=== PATIENT | male | born 1970 | race African-American/Black ===

== ENCOUNTER 2019-05-24 04:51 | Observation (INO) ==
[2019-05-24] MEDS ORDERED: SODIUM CHLORIDE 0.9% 500 ML IV STA (05:07)
[2019-05-24] MEDS ORDERED: hydrALAZINE 20 MG/1 ML VIAL IV STA (05:07)
[2019-05-24] MEDS ORDERED: METOCLOPRAMIDE 10 MG/2 ML VIAL IV STA (05:07)
[2019-05-24] MEDS ORDERED: ONDANSETRON 4 MG/2 ML VIAL IV STA (05:07)
[2019-05-24 05:46] LABS: Basophils % 0.1 % (0.0-0.8); Eosinophils % 0.1 % (0.00-10.9); Hematocrit 31.6 VOL% (42.0-52.0); Hemoglobin 10.5 GM/DL (14.0-18.0); Immature Granulocytes % 0.6 %; Immature Granulocytes Absolute 0.08 #; Lymphocytes # 0.9 10*3/uL (1.4-4.0); Lymphocytes % 6.5 % (21.2-54.2); Mean Corpuscular HGB Conc 33.2 GM/DL (32-36); Mean Corpuscular Volume 88.5 FL (87-102); Mean Platelet Volume 9.1 FL (9.6-12.0); Monocytes % 2.8 % (1.7-12.7); Neutrophils % 89.9 % (38.7-73.9); Platelet Count 386 T/CUMM (130-400); Red Blood Count 3.57 MC/CUMM (3.8-5.5); Red Cell Distribution Width 12.1 % (9.3-17.3); White Blood Count 13.2 T/CUMM (4-12)
[2019-05-24 06:07] LABS: Albumin 3.3 G/DL (3.4-5.0); Bilirubin,Total 0.8 MG/DL (0.2-1.0); Calcium 8.8 MG/DL (8.5-10.1); Osmolality,Calculated 266.8 MOS/KG (273-304); Total Protein 8.8 G/DL (6.4-8.3)
[2019-05-24 09:53] LABS: Apearance,Urine CLEAR (Clear); Bilirubin,Urine Negative (Negative); Blood, Urine Small mg/dL (Negative); Glucose,Urine (UA) 150 mg/dL (Negative); Ketones,Urine Negative (Negative); Nitrite,Urine Negative (Negative); Protein,Urine 100 MG/DL; RBC,Urine 3 /HPF (0-4); Squamous Epithelial Cell,Urine Occasional /HPF (0-10); Urine Color Yellow (Yellow); Urine Specific Gravity 1.009 (1.001-1.035); Urine Urobilinogen < 2.0 EU/DL (0.2-1.0); WBC,Urine 1 /HPF (0-6)
[2019-05-24] MEDS ORDERED: ONDANSETRON 4 MG/2 ML VIAL IV PRN (10:23)
[2019-05-24 12:20] LABS: Troponin I 0.119 NG/ML (0.00-0.045)
[2019-05-24] MEDS ORDERED: GLUCAGON 1 MG VIAL IM PRN (13:21)
[2019-05-24] MEDS ORDERED: DEXTROSE 10% 25 GM/250 ML BAG IV PRN (13:25)
[2019-05-24] MEDS ORDERED: hydrALAZINE 20 MG/1 ML VIAL IV PRN (16:04)
[2019-05-24] MEDS: ACETAMINOPHEN 325 MG TABLET PO PRN (16:14)
[2019-05-24] MEDS: INSULIN LISPRO 100 UNIT/ML SUBCUT SCH (16:14)
[2019-05-24] MEDS: FUROSEMIDE 40 MG TABLET PO SCH (16:14)
[2019-05-24] MEDS: LISINOPRIL/HCTZ 20-12.5 MG TABLET PO SCH (20:47)
[2019-05-24] MEDS: METOCLOPRAMIDE 10 MG/10 ML UDCUP PO SCH (20:47)
[2019-05-24] MEDS: PANTOPRAZOLE 40 MG TABLET PO SCH (20:48)
[2019-05-24] MEDS ORDERED: carvediloL 12.5 MG TABLET PO SCH (21:00)
[2019-05-25] MEDS: ACETAMINOPHEN 325 MG TABLET PO PRN ×2 (01:46→09:36)
[2019-05-25] MEDS: INSULIN LISPRO 100 UNIT/ML SUBCUT SCH ×2 (01:50→08:57)
[2019-05-25 05:06] LABS: Basophils % 0.2 % (0.0-0.8); Eosinophils # 0.1 10*3/uL (0.0-0.87); Eosinophils % 0.7 % (0.00-10.9); Hematocrit 29.6 VOL% (42.0-52.0); Hemoglobin 9.7 GM/DL (14.0-18.0); Immature Granulocytes % 0.2 %; Immature Granulocytes Absolute 0.02 #; Lymphocytes # 1.8 10*3/uL (1.4-4.0); Lymphocytes % 18.9 % (21.2-54.2); Mean Corpuscular HGB Conc 32.8 GM/DL (32-36); Mean Corpuscular Volume 88.9 FL (87-102); Monocytes % 6.7 % (1.7-12.7); Neutrophils % 73.3 % (38.7-73.9); Platelet Count 356 T/CUMM (130-400); Red Blood Count 3.33 MC/CUMM (3.8-5.5); Red Cell Distribution Width 12.2 % (9.3-17.3); White Blood Count 9.5 T/CUMM (4-12)
[2019-05-25 05:45] LABS: Calcium 8.2 MG/DL (8.5-10.1); Osmolality,Calculated 271.2 MOS/KG (273-304); Risk Ratio 4.49; Thyroid Stimulating Hormone 1.23 uIU/ml (0.358-3.74); VLDL CHOLESTEROL 17.4 MG/DL
[2019-05-25 07:57] VITALS: BP 160/81
[2019-05-25] MEDS: METOCLOPRAMIDE 10 MG/10 ML UDCUP PO SCH (08:56)
[2019-05-25] MEDS: PANTOPRAZOLE 40 MG TABLET PO SCH (08:57)
[2019-05-25] MEDS: FUROSEMIDE 40 MG TABLET PO SCH (08:57)
[2019-05-25] MEDS: LISINOPRIL/HCTZ 20-12.5 MG TABLET PO SCH (08:57)
[2019-05-25] MEDS ORDERED: carvediloL 25 MG TABLET PO SCH (09:00)
[2019-05-25] MEDS ORDERED: POTASSIUM CHLORIDE 20 MEQ TABLET PO SCH (09:00)
[2019-05-25] MEDS ORDERED: ASCORBIC ACID 500 MG TABLET PO SCH (09:00)
[2019-05-25] MEDS ORDERED: ATORVASTATIN 40 MG TABLET PO SCH (09:00)
[2019-05-25] MEDS ORDERED: PANTOPRAZOLE 40 MG TABLET PO SCH (09:00)
== END 2019-05-25 11:47 | disposition home or self-care (01) ==
LOC: N.EDINP 04:51 → N.ED 04:51 → N.TELEN 11:03
PROVIDERS: ADMIT Internal Medicine; ATTEND Internal Medicine